=== PATIENT | male | born 1985 | race Caucasian/White ===

== ENCOUNTER 2018-11-23 10:04 | Inpatient (IN) | payer OTHER ==
[~2018-11-23] VITALS: Ht 182.9 cm; Wt 96.2 kg
[2018-11-23] VITALS (18 sets, daily range): BP systolic 103–128; BP diastolic 50–82; PULSE 77–102; RESP 13–22; Ht 182.9 cm; Wt 96.2 kg
[2018-11-23] MEDS: LACTATED RINGER'S 1,000 ML IV SCH (11:14)
[2018-11-23] MEDS ORDERED: THROMBIN 5000 UNIT (RECOTHROM) VIAL ONE ×2 (11:37→13:49)
[2018-11-23] MEDS ORDERED: CEFAZOLIN 1 GM INJ ONE ×2 (11:37→12:50)
[2018-11-23] MEDS ORDERED: CA CHLORIDE 10% 10 ML SYRINGE ONE (11:38)
[2018-11-23] MEDS ORDERED: HEPARIN 1000 UNITS/ML 10 ML INJ ONE (11:38)
[2018-11-23] MEDS ORDERED: GELATIN SIZE 100 SPONGE ONE ×2 (11:38→13:48)
[2018-11-23] MEDS ORDERED: ROCURONIUM 50 MG INJ ONE ×2 (12:20→15:38)
[2018-11-23] MEDS ORDERED: METOCLOPRAMIDE 10 MG INJ ONE (12:20)
[2018-11-23] MEDS ORDERED: PROPOFOL 200 MG INJ ONE (12:20)
[2018-11-23] MEDS ORDERED: MIDAZOLAM 1 MG/ML 2 ML INJ ONE (12:20)
[2018-11-23] MEDS ORDERED: ROPIVACAINE 0.5 % 30 ML VIAL ONE (12:22)
[2018-11-23] MEDS ORDERED: LIDOCAINE 4% CR ONE (12:25)
[2018-11-23] MEDS ORDERED: DIPHENHYDRAMINE 25 MG CAP PO PRN (12:30)
[2018-11-23] MEDS ORDERED: ACETAMINOPHEN 325 MG TAB PO PRN (12:30)
[2018-11-23] MEDS ORDERED: BISACODYL 10 MG SUPP PR PRN (12:30)
[2018-11-23] MEDS ORDERED: AL HYDROX/MG HYDROX/SIMETH 30 ML CUP PO PRN (12:30)
[2018-11-23] MEDS ORDERED: ONDANSETRON 4 MG INJ IV PRN ×2 (12:30→13:30)
[2018-11-23] MEDS ORDERED: CYCLOBENZAPRINE 10 MG TAB PO PRN (12:30)
[2018-11-23] MEDS ORDERED: HYDROmorphONE 0.5 MG/0.5 ML SYG IV PRN (12:30)
[2018-11-23] MEDS ORDERED: CEPASTAT LOZENGE MT PRN (12:30)
[2018-11-23] MEDS ORDERED: NALOXONE (0.4 MG/ML) INJ IV PRN (12:30)
[2018-11-23] MEDS ORDERED: DIPHENHYDRAMINE 50 MG INJ IV PRN ×2 (12:30→13:30)
[2018-11-23] MEDS ORDERED: HYDROCODONE/APAP (10/325) TAB PO PRN ×2 (12:30)
[2018-11-23] MEDS ORDERED: ONDANSETRON 4 MG INJ ONE (12:50)
[2018-11-23] MEDS ORDERED: HYDROmorphONE 2 MG/ML SYG ONE (13:14)
[2018-11-23] MEDS ORDERED: MEPERIDINE 25 MG INJ IV PRN (13:30)
[2018-11-23] MEDS ORDERED: FENTAnyl 50 MCG/ML VIAL IV PRN ×3 (13:30)
[2018-11-23] MEDS ORDERED: HYDROmorphONE 1 MG/5 ML IV SYRINGE IV PRN ×3 (13:30)
[2018-11-23] MEDS ORDERED: NEOSTIGMINE 3 MG/3 ML SYRINGE ONE (15:35)
[2018-11-23] MEDS ORDERED: GLYCOPYRROLATE 0.4 MG INJ ONE (15:35)
[2018-11-23] MEDS ORDERED: PROPOFOL 20 ML ONE (15:38)
[2018-11-23] MEDS: HYDROmorphONE 0.2 MG/ML PCA IV SCH ×2 (16:18→20:27)
[2018-11-23] MEDS ORDERED: METOPROLOL 5 MG INJ ONE (17:26)
[2018-11-23] MEDS: D5W-0.45 NACL + KCL 20 MEQ 1,000 ML IV SCH (18:33)
[2018-11-23] MEDS: CEFAZOLIN 1 GM/50 ML (PMX) 50 ML IVPB SCH (20:10)
[2018-11-23] MEDS ORDERED: DOCUSATE SODIUM 100 MG CAP PO SCH (21:00)
[2018-11-23] MEDS ORDERED: HYDROmorphONE 0.2 MG/ML PCA IV SCH (21:00)
[2018-11-24] VITALS (25 sets, daily range): BP systolic 112–138; BP diastolic 57–86; PULSE 82–116; RESP 15–25
[2018-11-24] MEDS: D5W-0.45 NACL + KCL 20 MEQ 1,000 ML IV SCH ×5 (00:30→23:32)
[2018-11-24] MEDS: CEFAZOLIN 1 GM/50 ML (PMX) 50 ML IVPB SCH ×3 (04:22→22:05)
[2018-11-24] MEDS ORDERED: CEFAZOLIN 2 GM/50 ML (PMX) 50 ML IVPB ONE (06:30)
[2018-11-24] MEDS ORDERED: THROMBIN 5000 UNIT (RECOTHROM) VIAL ONE ×2 (06:45→09:38)
[2018-11-24] MEDS ORDERED: GELATIN SIZE 100 SPONGE ONE (06:45)
[2018-11-24] MEDS ORDERED: BUPIVACAINE 0.5%/EPI (SDV) 30 ML INJ ONE (06:46)
[2018-11-24] MEDS ORDERED: HEPARIN 1000 UNITS/ML 10 ML INJ ONE (06:46)
[2018-11-24] MEDS ORDERED: POLYMYXIN/BACITRACIN 1L IRRIG ONE (06:58)
[2018-11-24] MEDS ORDERED: MIDAZOLAM 1 MG/ML 2 ML INJ ONE (07:10)
[2018-11-24] MEDS ORDERED: SEVOFLURANE 15 MIN ONE (07:10)
[2018-11-24] MEDS ORDERED: HYDROmorphONE 0.5 MG/0.5 ML SYG IV PRN (07:30)
[2018-11-24] MEDS ORDERED: ACETAMINOPHEN 325 MG TAB PO PRN (07:30)
[2018-11-24] MEDS ORDERED: NALOXONE (0.4 MG/ML) INJ IV PRN (07:30)
[2018-11-24] MEDS ORDERED: DIPHENHYDRAMINE 25 MG CAP PO PRN (07:30)
[2018-11-24] MEDS ORDERED: CEPASTAT LOZENGE MT PRN (07:30)
[2018-11-24] MEDS ORDERED: BISACODYL 10 MG SUPP PR PRN (07:30)
[2018-11-24] MEDS ORDERED: ONDANSETRON 4 MG INJ IV PRN ×2 (07:30→10:30)
[2018-11-24] MEDS ORDERED: MAGNESIUM HYDROXIDE 30ML CUP PO PRN (07:30)
[2018-11-24] MEDS ORDERED: DIPHENHYDRAMINE 50 MG INJ IV PRN ×2 (07:30→10:30)
[2018-11-24] MEDS ORDERED: HEMOSTATIC MATRIX SYG ZFS ONE (08:23)
[2018-11-24] MEDS: DOCUSATE SODIUM 100 MG CAP PO SCH ×2 (09:00→21:00)
[2018-11-24] MEDS ORDERED: MEPERIDINE 100 MG INJ ONE (09:47)
[2018-11-24] MEDS ORDERED: SUCCINYLCHOLINE CHLORIDE 100 MG/5 ML SYG IV ONE (09:51)
[2018-11-24] MEDS ORDERED: ROCURONIUM 50 MG INJ ONE (09:51)
[2018-11-24] MEDS ORDERED: PROPOFOL 20 ML ONE (09:51)
[2018-11-24] MEDS ORDERED: LIDOCAINE 2% (SDV) 5 ML INJ ONE (09:51)
[2018-11-24] MEDS ORDERED: ONDANSETRON 4 MG INJ ONE (09:51)
[2018-11-24] MEDS: HYDROmorphONE 0.2 MG/ML PCA IV SCH ×4 (10:22→23:52)
[2018-11-24] MEDS ORDERED: LABETALOL HCL 20MG INJ IV PRN (10:30)
[2018-11-24] MEDS ORDERED: HYDROmorphONE 1 MG/5 ML IV SYRINGE IV PRN ×2 (10:30)
[2018-11-24] MEDS ORDERED: FENTAnyl 50 MCG/ML VIAL IV PRN (10:30)
[2018-11-24] MEDS ORDERED: MIDAZOLAM 1 MG/ML 2 ML INJ IV PRN (10:30)
[2018-11-24] MEDS ORDERED: METOCLOPRAMIDE 10 MG INJ IV PRN (10:30)
[2018-11-24] MEDS ORDERED: MEPERIDINE 25 MG INJ IV PRN (10:30)
[2018-11-24] MEDS: LACTATED RINGER'S 1,000 ML IV SCH (11:00)
[2018-11-24] MEDS ORDERED: LORAZEPAM 2 MG INJ IV PRN (16:00)
[2018-11-25 00:15] VITALS: BP 109/65; PULSE 100
[2018-11-25] MEDS: D5W-0.45 NACL + KCL 20 MEQ 1,000 ML IV SCH ×3 (03:01→23:42)
[2018-11-25] MEDS: CYCLOBENZAPRINE 10 MG TAB PO PRN ×2 (05:17→13:27)
[2018-11-25] MEDS: CEFAZOLIN 1 GM/50 ML (PMX) 50 ML IVPB SCH (05:17)
[2018-11-25] MEDS: HYDROmorphONE 0.2 MG/ML PCA IV SCH ×4 (05:30→23:51)
[2018-11-25 08:15] VITALS: BP 96/63; PULSE 80
[2018-11-25] MEDS: DOCUSATE SODIUM 100 MG CAP PO SCH ×2 (09:20→20:22)
[2018-11-25] MEDS ORDERED: MAGNESIUM SULFATE 3 GM in DEXTROSE 5% 100 ML IVPB ONE (09:30)
[2018-11-25] MEDS: LACTATED RINGER'S 1,000 ML IV SCH (11:00)
[2018-11-25 14:00] VITALS: BP 107/61; PULSE 96
[2018-11-25 14:01] VITALS: RESP 18
[2018-11-25 17:15] VITALS: BP 114/60
[2018-11-25 20:09] VITALS: BP 100/63; PULSE 97; RESP 20
[2018-11-26 00:57] VITALS: BP 112/60; PULSE 95; RESP 17
[2018-11-26] MEDS: HYDROmorphONE 0.2 MG/ML PCA IV SCH (06:13)
[2018-11-26] MEDS ORDERED: HYDROCODONE/APAP (10/325) TAB PO PRN (07:00)
[2018-11-26 07:40] VITALS: BP 111/57; PULSE 99; RESP 18
[2018-11-26] MEDS ORDERED: POTASSIUM CHLORIDE (SR) 10 MEQ TAB PO ONE (08:00)
[2018-11-26] MEDS ORDERED: SOD CHLORIDE 0.9% 1,000 ML IV SCH (08:00)
[2018-11-26] MEDS ORDERED: BISACODYL (EC) 5 MG TAB PO PRN (08:00)
[2018-11-26] MEDS: DOCUSATE SODIUM 100 MG CAP PO SCH ×2 (08:49→21:00)
[2018-11-26] MEDS: HYDROCODONE/APAP (10/325) TAB PO PRN ×4 (08:56→21:30)
[2018-11-26] MEDS: CYCLOBENZAPRINE 10 MG TAB PO PRN (12:17)
[2018-11-26 13:56] VITALS: BP 115/68; PULSE 98; RESP 16
[2018-11-26 20:19] VITALS: BP 108/59; PULSE 88; RESP 20
[2018-11-27] MEDS: HYDROCODONE/APAP (10/325) TAB PO PRN ×4 (01:53→17:12)
[2018-11-27 02:20] VITALS: BP 107/56; PULSE 80; RESP 20
[2018-11-27 08:12] VITALS: BP 107/60; PULSE 83; RESP 18
[2018-11-27] MEDS: DOCUSATE SODIUM 100 MG CAP PO SCH (09:31)
== END 2018-11-27 18:35 | disposition home or self-care (01) | DRG 454 ==
LOC: REC 10:04 → MS1 17:54
PROVIDERS: ADMIT Specialist; ATTEND Specialist
PROC: 0SB40ZZ Excision of Lumbosacral Disc, Open Approach (ICD-10-PCS; 2018-11-23)
PROC: 0SB20ZZ Excision of Lumbar Vertebral Disc, Open Approach (ICD-10-PCS; 2018-11-23)
PROC: 4A11X4G Monitoring of Peripheral Nervous Electrical Activity, Intraoperative, External Approach (ICD-10-PCS; 2018-11-23)
PROC: 0SG00A0 Fusion of Lumbar Vertebral Joint with Interbody Fusion Device, Anterior Approach, Anterior Column, Open Approach (ICD-10-PCS; principal; 2018-11-23 12:00)
PROC: 0SG30K1 Fusion of Lumbosacral Joint with Nonautologous Tissue Substitute, Posterior Approach, Posterior Column, Open Approach (ICD-10-PCS; 2018-11-24)
PROC: 0SG30A0 Fusion of Lumbosacral Joint with Interbody Fusion Device, Anterior Approach, Anterior Column, Open Approach (ICD-10-PCS; 2018-11-24)
PROC: 0SG00K1 Fusion of Lumbar Vertebral Joint with Nonautologous Tissue Substitute, Posterior Approach, Posterior Column, Open Approach (ICD-10-PCS; 2018-11-24)
PROC: 4A11X4G Monitoring of Peripheral Nervous Electrical Activity, Intraoperative, External Approach (ICD-10-PCS; 2018-11-24)
DX: M43.16 Spondylolisthesis, lumbar region (principal); E87.1 Hypo-osmolality and hyponatremia; I95.9 Hypotension, unspecified; M48.07 Spinal stenosis, lumbosacral region; M51.16 Intervertebral disc disorders with radiculopathy, lumbar region; M51.17 Intervertebral disc disorders with radiculopathy, lumbosacral region; M48.061 Spinal stenosis, lumbar region without neurogenic claudication
CPT/HCPCS: 72020; 72100; 72110; 72131; 80048; 81001; 83735; 84100; 84300; 85025; 86850; 86900; 86901; 86920; 86999; 87086; 88304; 97116; 97163; 97530; C1713; J0690; J1170; J1200; J1644; J2175; J2250; J2405; J2710; J2765; J2795; J3010; J3475; J3480; J7030; J7120; V2790